=== PATIENT | male | born 1960 | race Caucasian/White ===

== ENCOUNTER → 2019-01-24 | Outpatient (CLI) | payer OTHER ==
--- NOTE | 2019-01-24 12:24 | RADIOLOGY REPORT (SQ) ---
EXAM DESCRIPTION: MRI LUMBAR SPINE WITHOUT COMPLETED DATE/TIME: 01/24/2019 12:04 pm REASON FOR STUDY: LOW BACK PAIN M54.5 LOW BACK PAIN COMPARISON: None. TECHNIQUE: Sagittal and Axial imaging includes T1, T2, STIR and gradient echo sequences. Coronal T2/ HASTE imaging. LIMITATIONS: Motion. FINDINGS: VISUALIZED UPPER ABDOMEN: Limited evaluation. No acute or suspicious findings suggested. SEGMENTATION: No transitional anatomy. The lowest well-developed disc space is labeled L5-S1. ALIGNMENT: Anatomic. VERTEBRAE: Intact. BONE MARROW: Normal. No marrow replacement or reactive changes. DISC SIGNAL: Desiccation multiple levels. POSTERIOR ELEMENTS: Generally intact. No pars defect evident. HARDWARE: None in the spine. CORD AND CONUS: Normal in size and signal intensity. Conus at the appropriate level. SOFT TISSUES: No aortic aneurysm seen. No bulky retroperitoneal adenopathy or mass. No paraspinal mas s or fluid. L1-L2: Mild spinal stenosis due to disc bulge and facet arthropathy. L2-L3: Moderate spinal stenosis due to disc osteophyte complex and facet arthropathy. Mild neural fo raminal narrowing bilaterally. L3-L4: Moderate spinal stenosis due to disc bulge and facet arthropathy. L4-L5: Moderate spinal stenosis due to disc bulge and facet arthropathy. Mild neural foraminal narro wing bilaterally. L5-S1: Disc bulge and facet arthropathy. No significant stenosis. LOWER THORACIC: Incompletely imaged. No stenosis seen. SACRUM: Visualized upper sacrum intact. OTHER: No other significant findings. IMPRESSION: Spondylosis and facet arthropathy. Moderate spinal stenosis at multiple levels. TECHNICAL DOCUMENTATION: JOB ID: [id number] [employer]- All Rights Reserved Reading location - IP/workstation name: [email or web address]
== END ==
LOC: RAD 11:27
PROVIDERS: ATTEND Nurse Practitioner Family
DX: M54.5 Low back pain (principal)
CPT/HCPCS: 72148

== ENCOUNTER → 2019-09-28 | Outpatient (CLI) | payer OTHER ==
[~2019-09-28] MED LIST: ALBUTEROL SULFATE 0.083% NEB 2.5 MG/3 ML AMPUL NEB ONE
--- NOTE | 2019-09-30 11:56 | Pulmonary Function Test ---
Pulmonary Function Test Date of Procedure:: 09/28/19 INDICATION:: Dyspnea Referring Provider: Dr. Holguin Labor Relations Consultant: Kelsea Perry, LEATHER GRADER, MAJOR ASSEMBLER - Report Spirometry: Spirometry: pre-FVC: 5.21 L 85% post-FVC: 5.19 L 84% pre-FEV:1 2.76 L 56% post-FEV1: 2.58 L 53% pre-FEV1/FVC %: 53 post-FEV1/FVC%: 50 predicted: 78 [id number]%: 0.63 L 13% [id number]%: 0.56 L 12% Lung Volume: Total lung capacity: 6.63 L 77% Vital capacity: 5.21 L 85% Inspiratory capacity: 2.96 L FRC N2: 3.68 L 81% ERV: RV: 1.42 L 49% RV/TLC %:: 21 predicted 37 Diffusion Capactity: DLCO: 29.0 94% DLCO/VA: 5.56 141% Impression: Moderate obstructive ventilatory defect. Insignificant response to bronchodilator therapy. This does not preclude a clinical trial of bronchodilator therapy. Mild restrictive ventilatory defect. (Restrictive defect may mask degree of obstruction.) No hyperinflation or air trapping. Normal diffusion capacity.
== END ==
LOC: RT 08:22
PROVIDERS: ATTEND Internal Medicine Critical Care Medicine
DX: R06.09 Other forms of dyspnea (principal); R91.8 Other nonspecific abnormal finding of lung field; E78.2 Mixed hyperlipidemia; Z72.0 Tobacco use
CPT/HCPCS: 94060; 94727; 94729

== ENCOUNTER → 2019-09-30 | Outpatient (CLI) | payer OTHER ==
--- NOTE | 2019-09-30 11:21 | RADIOLOGY REPORT (SQ) ---
EXAM DESCRIPTION: CT CHEST WITHOUT COMPLETED DATE/TIME: 09/30/2019 8:27 am REASON FOR STUDY: OTHER FORMS OF DYSPNEA R06.09 OTHER FORMS OF DYSPNEA COMPARISON: None. TECHNIQUE: CT scan performed of the chest without intravenous contrast. Images reviewed with lung, soft tissue and bone windows. Reconstructed coronal and sagittal MPR images reviewed. All images st ored on PACS. All CT scanners at this facility use dose modulation, iterative reconstruction, and/or weight based d osing when appropriate to reduce radiation dose to as low as reasonably achievable (ALARA). [facility]: Dose Right [facility]: CareDose [facility]: Dose Right [facility]: Teradose 4D [facility]: Smart [employer] RADIATION DOSE: CT Rad equipment meets quality standard of care and radiation dose reduction techniq ues were employed. CTDIvol: 16.6 mGy. DLP: 661 mGy-cm. mGy. LIMITATIONS: No technical limitations. FINDINGS: LUNGS AND PLEURA: Upper lobe predominant centrilobular emphysema, thickening of the bronch ial thompson, and subtle mosaic attenuation pattern of the parenchyma. There is no bronchiectasis, bron chiolectasis or segmental mucus plugging. There are no reticular opacities or distortion of the pare nchymal architecture. The less than 6 mm sub solid nodules in the right middle lobe (image 39 of ser ies 601) and in the right lower lobe (image 96 of series 4) are nonspecific and attention on follow-u p is recommended. There is no consolidation, pleural effusion or pneumothorax. HILAR AND MEDIASTINAL STRUCTURES: Evaluation of the adelia for adenopathy is limited due to the absence of intravenous contrast. There are no enlarged mediastinal lymph nodes HEART AND VASCULAR STRUCTURES: The thoracic aorta is normal in caliber. There is no evidence of an i ntramural hematoma. The the heart is borderline enlarged and there is moderate atherosclerotic calci fication of the coronary arteries. There is no pericardial effusion. UPPER ABDOMEN: Incidental accessory splenule. THYROID AND OTHER SOFT TISSUES: No masses or adenopathy. BONES: No acute findings. HARDWARE: None in the chest. OTHER: No other findings. IMPRESSION: 1. Upper lobe predominant centrilobular emphysema, thickening of the bronchial thompson, an d subtle mosaic attenuation pattern of the parenchyma. The constellation of findings is nonspecific and suggest could represent a smoking-related respiratory tract disease such as respiratory bronchiol itis. 2. The less than 6 mm sub solid nodules in the right middle lobe (image 39 of series 601) and in the right lower lobe (image 96 of series 4) are nonspecific and could be part of the a aforementioned sm oking-related respiratory tract disease. Attention on follow-up CTs is recommended. TECHNICAL DOCUMENTATION: JOB ID: [id number] Quality ID # [id number]: Final reports with documentation of one or more dose reduction techniques (e.g., Au tomated exposure control, adjustment of the mA and/or kV according to patient size, use of iterative reconstruction technique) 2010 [employer]- All Rights Reserved Reading location - IP/workstation name: [email or web address]
== END ==
LOC: RAD 08:20
PROVIDERS: ATTEND Internal Medicine Critical Care Medicine
DX: J43.2 Centrilobular emphysema (principal); R06.09 Other forms of dyspnea; E78.2 Mixed hyperlipidemia; Z72.0 Tobacco use
CPT/HCPCS: 71250

== ENCOUNTER → 2020-02-29 | Outpatient (CLI) | payer OTHER ==
--- NOTE | 2020-02-29 10:39 | RADIOLOGY REPORT (SQ) ---
EXAM DESCRIPTION: CT CHEST WITHOUT IMAGES COMPLETED DATE/TIME: 02/29/2020 8:40 am REASON FOR STUDY: COPD WITH CHRONIC BRONCHITIS J44.9 CHRONIC OBSTRUCTIVE PULMONARY DISEASE, UNSPECI FIED COMPARISON: CT of the chest without contrast from 09/30/2019. TECHNIQUE: CT scan performed of the chest without intravenous contrast. Images reviewed with lung, soft tissue and bone windows. Reconstructed coronal and sagittal MPR images reviewed. All images st ored on PACS. All CT scanners at this facility use dose modulation, iterative reconstruction, and/or weight based d osing when appropriate to reduce radiation dose to as low as reasonably achievable (ALARA). [facility]: Dose Right [facility]: CareDose [facility]: Dose Right [facility]: Teradose 4D [facility]: [employer] RADIATION DOSE: CT Rad equipment meets quality standard of care and radiation dose reduction techniq ues were employed. CTDIvol: 15.7 mGy. DLP: 656 mGy-cm. LIMITATIONS: No technical limitations. FINDINGS: LUNGS AND PLEURA: Unchanged mild upper lobe predominant centrilobular emphysema and thicke mirian of the bronchial thompson. There is no bronchiectasis, bronchiolectasis or segmental mucus pluggin g. There are no reticular opacities or distortion of the parenchymal architecture. There is no acut e consolidation, ground-glass opacification, pleural effusion or pneumothorax. LUNG NODULES: The 5 mm sub solid nodule in the right lower lobe (image 97 of series 4) is stable. T he previously described sub solid nodule in the right middle lobe is no longer present. The perifiss ural nodule along the horizontal fissure (image 71 of series 4) is stable. There is no new or enlarg ing pulmonary nodule. HILAR AND MEDIASTINAL STRUCTURES: Evaluation of the adelia for adenopathy is limited due to the absence of intravenous contrast. There are no enlarged mediastinal lymph nodes. HEART AND VASCULAR STRUCTURES: The thoracic aorta is normal in caliber. There is no evidence of an i ntramural hematoma. The heart is borderline enlarged and there is moderate atherosclerotic calcifica tion of the coronary arteries. There is no pericardial effusion. UPPER ABDOMEN: No acute findings. THYROID AND OTHER SOFT TISSUES: No masses or adenopathy. BONES: No acute findings. HARDWARE: None in the chest. OTHER: No other findings. IMPRESSION: Stable 5 mm sub solid nodule in the right lower lobe (image 97 of series 4). The previo usly described sub solid nodule in the right middle lobe (image 39 of series [address]) is no longer present. There is no new or enlarging pulmonary nodule or acute cardiopulmonary process . TECHNICAL DOCUMENTATION: JOB ID: [id number] Quality ID # [id number]: Final reports with documentation of one or more dose reduction techniques (e.g., Au tomated exposure control, adjustment of the mA and/or kV according to patient size, use of iterative reconstruction technique) 2010 [employer]- All Rights Reserved Reading location - IP/workstation name: [facility]-
== END ==
LOC: RAD 08:34
PROVIDERS: ATTEND Internal Medicine Critical Care Medicine
DX: J44.9 Chronic obstructive pulmonary disease, unspecified (principal); R91.8 Other nonspecific abnormal finding of lung field; R91.1 Solitary pulmonary nodule; Z72.0 Tobacco use
CPT/HCPCS: 71250